=== PATIENT | male | born 1975 | race Caucasian/White ===

== ENCOUNTER 2017-12-05 00:16 | Emergency (ER) | payer BC ==
[~2017-12-05] VITALS: Ht 177.8 cm; Wt 90.7 kg
[2017-12-05] MEDS ORDERED: CIPROFLOXIN HC2.5 M1 OPHTHALMIC (01:07)
[2017-12-05 01:14] VITALS: BP 118/72
== END 2017-12-05 01:14 | disposition home or self-care (01) ==
LOC: M.ERS 00:16
DX: H05.222 Edema of left orbit (principal); J45.909 Unspecified asthma, uncomplicated; Z90.89 Acquired absence of other organs; Z98.890 Other specified postprocedural states

== ENCOUNTER 2019-01-06 05:09 | Emergency (ER) | payer BC ==
[~2019-01-06] VITALS: Ht 177.8 cm; Wt 90.7 kg
[~2019-01-06 05:09] MED LIST: CIPROFLOXIN HC2.5 M1 OPHTHALMIC
[2019-01-06] MEDS ORDERED: NORCO 5-325 TA1 EAC1 PO (05:43)
[2019-01-06] MEDS ORDERED: MEDROLDOSEPACK PO (05:43)
[2019-01-06] MEDS ORDERED: CYCLOBENZAPRINE5 MG PO (05:43)
[2019-01-06 06:07] VITALS: BP 130/83
== END 2019-01-06 06:09 | disposition home or self-care (01) ==
LOC: M.ERS 05:09
DX: M43.6 Torticollis (principal); J45.909 Unspecified asthma, uncomplicated; Z98.890 Other specified postprocedural states